=== PATIENT | female | born 1950 | race Caucasian/White ===

== ENCOUNTER 2019-12-20 01:24 | Emergency (ER) | payer MEDICARE, OTHER ==
[2019-12-20] MEDS ORDERED: NORMAL SALINE 1000 ML 1,000 ML IV ONE (01:49)
[2019-12-20 02:46] LABS: ABSOLUTE BASOPHILS # (AUTO) 0.1 10^3/uL (0.0-0.2); ABSOLUTE MONOCYTES (AUTO) 0.4 10^3/uL (0.1-1.4); BASOPHILS % (AUTO) 0.8 % (0-2); EOSINOPHILS % (AUTO) 0.2 % (0-6); HEMATOCRIT 27.9 % (36.0-47.0); HEMOGLOBIN 9.3 g/dL (12.0-15.5); MEAN CORPUSCULAR HEMOGLOBIN 28.8 pg (27.0-33.4); MEAN CORPUSCULAR HGB CONC 33.2 g/dL (32.0-36.0); MEAN CORPUSCULAR VOLUME 87 fl (80-97); MONOCYTES % (AUTO) 4.7 % (3-13); PLATELET COUNT 406 10^3/uL (150-450); RED BLOOD COUNT 3.23 10^6/uL (3.72-5.28); RED CELL DISTRIBUTION WIDTH 15.6 % (11.5-14.0); SEGMENTED NEUTROPHILS % (AUTO) 84.3 % (42-78); TOTAL CELLS COUNTED % (AUTO) 100 %; WHITE BLOOD COUNT 9.5 10^3/uL (4.0-10.5)
[2019-12-20 02:53] LABS: INTERNATIONAL RATION (INR) 1.09; PARTIAL THROMBOPLASTIN TIME 36.5 SEC (23.5-35.8); PROTHROMBIN TIME 14.1 SEC (11.4-15.4)
[2019-12-20 02:55] LABS: D-DIMER 1.97 ug/mL (0.00-0.50)
[2019-12-20 03:09] LABS: ALBUMIN 3.3 g/dL (3.5-5.0); ALKALINE PHOSPHATASE 149 U/L (38-126); ANION GAP 17 (5-19); ASPARTATE AMINO TRANSFERASE 178 U/L (14-36); BILIRUBIN,DIRECT 0.2 mg/dL (0.0-0.4); BILIRUBIN,TOTAL 0.7 mg/dL (0.2-1.3); BLOOD UREA NITROGEN 45 mg/dL (7-20); CALCIUM 8.6 mg/dL (8.4-10.2); CARBON DIOXIDE 18 mmol/L (22-30); CHLORIDE 99 mmol/L (98-107); POTASSIUM 5.4 mmol/L (3.6-5.0); TOTAL PROTEIN 6.1 g/dL (6.3-8.2)
[2019-12-20 03:28] LABS: GLUCOSE 472 mg/dL (75-110)
[2019-12-20 03:30] LABS: TROPONIN I 0.65 ng/mL
--- NOTE | 2019-12-20 03:57 | RADIOLOGY REPORT (SQ) ---
CLINICAL HISTORY: SOBr/ abd pain COMPARISON: None. TECHNIQUE: XR ABDOMEN SUPINE AND ERECT WITH CHEST (ABD ACUTE SERIES) 12/20/2019 1:46 AM RIVETER HAND FINDINGS: Bowel gas pattern is nonspecific. There are no abnormal radiopaque foreign bodies or abnormal calcifications. Osseous structures are grossly unremarkable. The heart is mildly enlarged. There may be mild pulmonary edema. IMPRESSION: No bowel obstruction.
[2019-12-20] MEDS ORDERED: BUMETANIDE INJ/PF 1 MG/4 ML SDV IV ONE (04:23)
[2019-12-20] MEDS ORDERED: INSULIN REG, HUMAN 100 UNIT/ML 3 ML VIAL (PYX) IV ONE ×2 (04:32→08:41)
[2019-12-20] MEDS ORDERED: ASPIRIN 325 MG TABLET PO ONE (04:45)
[2019-12-20 05:06] LABS: VENOUS BLOOD BASE EXCESS -6.1 mmol/L; VENOUS BLOOD HCO3 18.3 mmol/L (20-32); VENOUS BLOOD PCO2 32.3 mmHg (35-63); VENOUS BLOOD PH 7.37 (7.30-7.42)
[2019-12-20 06:37] LABS: APPEARANCE,URINE SLIGHTLY-CLOUDY; BILIRUBIN,URINE NEGATIVE (NEGATIVE); COLOR,URINE YELLOW; GLUCOSE, URINE >=500 mg/dL (NEGATIVE); KETONES,URINE TRACE mg/dL (NEGATIVE); LEUKOCYTE ESTERASE,URINE MODERATE (NEGATIVE); NITRITE,URINE NEGATIVE (NEGATIVE); PROTEIN,URINE NEGATIVE (NEGATIVE); URINE SPECIFIC GRAVITY 1.016; UROBILINOGEN,URINE NEGATIVE mg/dL (<2.0)
[2019-12-20 08:25] LABS: ALBUMIN 2.9 g/dL (3.5-5.0); ALKALINE PHOSPHATASE 124 U/L (38-126); ANION GAP 15 (5-19); ASPARTATE AMINO TRANSFERASE 712 U/L (14-36); BILIRUBIN,DIRECT 0.3 mg/dL (0.0-0.4); BILIRUBIN,TOTAL 0.5 mg/dL (0.2-1.3); BLOOD UREA NITROGEN 48 mg/dL (7-20); CALCIUM 8.4 mg/dL (8.4-10.2); CARBON DIOXIDE 19 mmol/L (22-30); CHLORIDE 101 mmol/L (98-107); TOTAL PROTEIN 5.8 g/dL (6.3-8.2)
[2019-12-20 08:39] LABS: GLUCOSE 403 mg/dL (75-110); POTASSIUM 4.3 mmol/L (3.6-5.0)
--- NOTE | 2019-12-20 08:44 | ER Document Report ---
Doctor's Note Notes: 12/20/19 08:43 I just assessed patient at 840. Patient is resting comfortably with no complaints. She specifically denies chest pain or shortness of breath. Heart rate is approximately 95. O2 saturation is 95 to 100% on the BiPAP. She is resting comfortably in a reclining position. There is no labored breathing. She is not diaphoretic. Patient's blood pressure was approximate 92 systolic. Her troponin has come back elevated however since she has no chest pain and is being transferred for possible catheterization I do not believe this will change her management at this juncture in her care.
[2019-12-20 08:50] VITALS: BP 97/69
--- NOTE | 2019-12-20 22:35 | EKG REPORT ---
SEVERITY:- ABNORMAL ECG - SINUS RHYTHM INCOMPLETE LEFT BUNDLE BRANCH BLOCK LVH WITH SECONDARY REPOLARIZATION ABNORMALITY EXTENSIVE ANTERIOR INFARCT, AGE INDETERMINATE : Confirmed by: Katie Eid 20-Dec-2019 22:34:54
--- NOTE | 2019-12-21 12:56 | ER Document Report ---
Entered by WICHO MORIN SCRIBE 12/20/19 0136 Acting as scribe for:LOTTIE RICKETTS MD ED General - General Information source: Patient <LOTTIE RICKETTS - Last Filed: 12/20/19 04:11> <YESSY HYLTON - Last Filed: 12/20/19 06:39> - General Chief Complaint: Breathing Difficulty Stated Complaint: RESPIRATORY DISTRESS Primary Care Provider: SARI ALLEN MD [Primary Care Provider] - Follow up as needed Notes: 69-year-old female presents to the emergency department via EMS with chief complaint of difficulty breathing. EMS states that she was found in her bed at home at 78% on room air with signs of difficultly breathing. EMS states that patient's cousin has been "fighting a cough" and patient went to her primary care provider today. EMS reports that at the primary care provider there was a change in medications. EMS states that she was hot to the touch, rattling sounds in throat, and rhonchi bilaterally when they examined her. EMS stated that patient's sugar was 430 and lactic acid was 7.7. EMS states that she is doing better now. Patient reports fever, cough, abdominal pain, shortness of breath and swelling in the right leg and chills. Patient states that abdominal pain and shortness of breath is better now after being on the CPAP machine. Patient stated that she was recently visiting her daughter in [place] at the beginning of the year. Patient had a heart attack on November 12, 2019 and was hospitalized for a couple weeks. Patient stated that there were many complications during this time and had kidney failure. Patient stated that she was discharged from the hospital with coronary artery blockages and taken off of her blood thinner medications. Patient came back to [place], [place]. Upon her return to [place], she visited her primary care on [facility] where they took her off of her blood pressure medications yesterday. (LOTTIE RICKETTS) - Related Data Allergies/Adverse Reactions: heparin Allergy (Verified 12/20/19 01:47) latex Allergy (Verified 12/20/19 01:47) iv contrast Allergy (Uncoded 12/20/19 01:47) Past Medical History - General Information source: Patient, Emergency Med Personnel - Past Medical History Cardiac Medical History: Reports: Hx Atrial Fibrillation, Hx Coronary Artery Disease, Hx Heart Attack - November 2019 Endocrine Medical History: Reports: Hx Diabetes Mellitus Type 1 <LOTTIE RICKETTS - Last Filed: 12/20/19 04:11> - Social History Smoking Status: Former Smoker Family History: DM <YESSY HYLTON - Last Filed: 12/20/19 06:39> Review of Systems - Review of Systems Constitutional: See HPI, Chills, Fever EENT: No symptoms reported Cardiovascular: No symptoms reported Respiratory: See HPI, Cough, Short of breath Gastrointestinal: See HPI, Abdominal pain Genitourinary: No symptoms reported Female Genitourinary: No symptoms reported Musculoskeletal: No symptoms reported Skin: No symptoms reported Hematologic/Lymphatic: No symptoms reported Neurological/Psychological: No symptoms reported -: Yes All other systems reviewed and negative <LOTTIE RICKETTS - Last Filed: 12/20/19 04:11> Physical Exam <LOTTIE RICKETTS - Last Filed: 12/20/19 04:11> - Vital signs Vitals: Resp Pulse Ox 27 H 100 12/20/19 01:28 12/20/19 01:28 - Notes Notes: Physical Exam: General: Alert. Appears pale. HEENT: Normocephalic. Atraumatic. PERRL. Extraocular movements intact. Oropharynx clear. Neck: Supple. Non-tender. Respiratory: Moderate respiratory distress. Diminished breath sounds bilaterally. Cardiovascular: Tachycardia. Abdominal: Normal Inspection. Non-tender. No distension. Normal Bowel Sounds. Back: No gross abnormalities. Extremities: Moves all four extremities. Upper extremities: Normal inspection. Normal ROM. Lower extremities: Normal inspection. No edema. Normal ROM. Neurological: Normal cognition. AAOx4. Normal speech. Psychological: Normal affect. Normal Mood. Skin: Warm. Dry. Pale. (LOTTIE RICKETTS) Course - Laboratory Result Diagrams: 12/20/19 02:30 12/20/19 02:30 - Transfer of Care Care transferred to following provider: Transfer care to Dr. Yessy Andino <LOTTIE RICKETTS - Last Filed: 12/20/19 04:11> - Laboratory Result Diagrams: 12/20/19 02:30 12/20/19 02:30 <YESSY HYLTON - Last Filed: 12/20/19 06:39> - Re-evaluation Re-evalutation: 12/20/19 04:36 Received signout on this patient from Dr. Ricketts, he did discuss the patient with [facility] for transfer as the family would prefer to continue to receive all of their care through [facility], he did discuss the case with the physician there who stated that they would not be able to do a heart catheterization and the patient would just need to be transferred anyway. Patient and family member then request to be transferred to [facility] as their preferred hospital. I just finished speaking with Dr. Young about possibly transferring there. He is uncertain whether or not they have any beds but he will check. Patient is doing quite well on the BiPAP, CBC does not reveal any leukocytosis, there is a stable anemia, Platelets are normal, PTT is prolonged and d-dimer is elevated, chemistries reveal pseudo-hyponatremia with a sodium 133.9, potassium is elevated but I expect this to improve with the insulin that we are using to treat the glucose of 472, CO2 is low at 18, and anion gap is normal, BUN and creatinine are elevated at 45 and 3.01 respectively, calcium normal, AST, ALT and alk phos are all mildly elevated, troponin is elevated at 0.650 and proBNP is markedly elevated at 34,500. Lipase is normal. Patient is not septic, there is no source for infection, we will not start antibiotics, there is no indication for a 30 cc/kg fluid bolus on a patient with no source for infection, no leukocytosis and no fever. Patient is currently doing well on BiPAP. Oxygenation is 93%, heart rate is 99, respiratory rate is 27, blood pressure is 100/62. Patient will be given Bumex to help with diuresis, her pressure is too low to be able to treat her flash pulmonary edema with nitroglycerin. Patient's elevated troponin may represent another non-STEMI or it may represent stress from the flash pulmonary edema. Patient will be given a Lovenox shot for anticoagulation. Acute abdominal series was ordered and per radiology does not reveal any acute process however my review of the chest x-ray reveals pulmonary edema. 12/20/19 04:45 On review of allergies patient has an allergy to heparin therefore she cannot be given heparin or Lovenox. 12/20/19 06:36 Patient has been accepted, bed has been assigned, EMS will be here at 730 to transport her to [facility]. I did have an extensive discussion with the patient and her daughter as well as cousin regarding her CODE STATUS. Patient states that if she is no longer able to breathe on her own she would like to be intubated but she would not like to have CPR performed. (YESSY HYLTON) - Vital Signs Vital signs: Temp Pulse Resp BP Pulse Ox 97.7 F 29 H 94/49 L 95 12/20/19 01:29 12/20/19 05:31 12/20/19 06:31 12/20/19 06:31 - Laboratory Laboratory results interpreted by me: 12/20/19 12/20/19 12/20/19 02:30 02:30 02:30 RBC 3.23 L Hgb 9.3 L Hct 27.9 L RDW 15.6 H Lymph % (Auto) 10.0 L Seg Neutrophils % 84.3 H APTT 36.5 H D-Dimer 1.97 H VBG pCO2 VBG HCO3 Sodium 133.9 L Potassium 5.4 H Carbon Dioxide 18 L BUN 45 H Creatinine 3.01 H Est GFR ( Amer) 19 L Est GFR (MDRD) Non-Af 15 L Glucose 472 H* Lactic Acid AST 178 H ALT 104 H Alkaline Phosphatase 149 H NT-Pro-B Natriuret Pep Total Protein 6.1 L Albumin 3.3 L 12/20/19 12/20/19 12/20/19 02:30 02:30 02:30 RBC Hgb Hct RDW Lymph % (Auto) Seg Neutrophils % APTT D-Dimer VBG pCO2 32.3 L VBG HCO3 18.3 L Sodium Potassium Carbon Dioxide BUN Creatinine Est GFR ( Amer) Est GFR (MDRD) Non-Af Glucose Lactic Acid 4.5 H AST ALT Alkaline Phosphatase NT-Pro-B Natriuret Pep 45891 H Total Protein Albumin - EKG Interpretation by Me Additional EKG results interpreted by me: 12/20/19 04:43 EKG shows sinus rhythm at a rate of 97, incomplete left bundle branch block, LVH, ST segment depressions in lead II and aVF, T wave inversions in 1 and aVL, poor R wave progression, no ST segment elevations per my interpretation. (YESSY HYLTON) Critical Care Note - Critical Care Note Total time excluding time spent on procedures (mins): 35 <YESSY HYLTON - Last Filed: 12/20/19 06:39> Discharge <LOTTIE RICKETTS - Last Filed: 12/20/19 04:11> <YESSY HYLTON - Last Filed: 12/20/19 06:39> - Discharge Clinical Impression: Acute coronary syndrome with high troponin, Low oxygen saturation, NSTEMI (non- ST elevated myocardial infarction), Hyperkalemia, diminished renal excretion Congestive heart failure Qualifiers: Heart failure type: unspecified Heart failure chronicity: acute on chronic Qualified Code(s): I50.9 - Heart failure, unspecified Acute renal failure Qualifiers: Acute renal failure type: unspecified Qualified Code(s): N17.9 - Acute kidney failure, unspecified Hyperglycemia due to type 2 diabetes mellitus Qualifiers: Diabetes mellitus buttermaker continuous churn insulin use: unspecified fpc insulin use status Qualified Code(s): E11.65 - Type 2 diabetes mellitus with hyperglycemia Condition: Critical Disposition: [facility] Referrals: SARI ALLEN MD [Primary Care Provider] - Follow up as needed I personally performed the services described in the documentation, reviewed and edited the documentation which was dictated to the scribe in my presence, and it accurately records my words and actions.
== END 2019-12-20 07:45 | disposition short-term general hospital (02) ==
LOC: ER 01:24
DX: I21.4 Non-ST elevation (NSTEMI) myocardial infarction (principal); I50.1 Left ventricular failure, unspecified; I24.9 Acute ischemic heart disease, unspecified; I25.10 Atherosclerotic heart disease of native coronary artery without angina pectoris; E11.65 Type 2 diabetes mellitus with hyperglycemia; N17.9 Acute kidney failure, unspecified; E87.5 Hyperkalemia; D64.9 Anemia, unspecified; I44.7 Left bundle-branch block, unspecified; R05 Cough; R10.9 Unspecified abdominal pain; R06.02 Shortness of breath; R00.0 Tachycardia, unspecified; I25.2 Old myocardial infarction; Z88.8 Allergy status to other drugs, medicaments and biological substances; Z91.041 Radiographic dye allergy status; Z91.040 Latex allergy status
CPT/HCPCS: 93005; 99291; 96361; 96374; 36415; 87040; 82962; 83605; 83690; 85025; 85610; 85730; 87070; 87077; 80053; 81001; 84484; 87186; 85379; 82803; 87150 ×26; 83880; 74022; 93010; 94660; A9270 ×2; J3490; J7030; J1815